=== PATIENT | female | born 1965 | race Caucasian/White ===

== ENCOUNTER → 2017-09-24 | Outpatient (CLI) | payer OTHER ==
--- NOTE | 2017-09-24 09:00 | DIAGNOSTIC IMAGING REPORT ---
RIGHT KNEE MRI HISTORY: RT KNEE PAIN COMPARISON STUDY: None. TECHNIQUE: Multiplanar multisequence MRI of the right knee was performed according to standard department protocol without the use of contrast. FINDINGS: Menisci: Complex tear at the posterior root of the medial meniscus with an oblique tear at the body of the medial meniscus. There is also a free edge tear involving the posterior horn of the medial meniscus. There is a free of tear at the body of the lateral meniscus. There is an oblique tear at the posterior horn of the lateral meniscus with a complex tear of the posterior root of the lateral meniscus. Ligaments: The ACL is not identified and likely torn. This could be chronic. The PCL is intact. There is thickening of the LCL which may be due to chronic injury. There is thickening and a small amount of abnormal signal within the proximal to mid MCL with surrounding edema. This suggests a partial tear. Extensor mechanism: The quadriceps tendon and patellar ligament are intact. Articular cartilage and bone: Patchy areas of marrow edema seen within the distal femur and proximal tibia. The distal femoral edema may be due to the long-standing degenerative change and/or bone contusions. There are subacute medial and lateral tibial plateau fractures. The lateral tibial plateau fracture demonstrates up to 5 mm of depression. The medial tibial plateau fracture demonstrates up to 2 mm of depression. Subchondral cystic change at the medial femoral condyle is likely chronic. This could also represent small areas of osteochondral lesions. These measure 6 and 5 mm in size. There is mild anterior subluxation of the distal tibia and relation to the femur. This may be due to the old ACL injury. Mild cartilage thinning within the medial patellar facet. Full-thickness cartilage loss seen within the medial compartment of the knee. Mild to moderate cartilage space narrowing within the lateral compartment of the knee. Joint effusion: Small. Soft tissues: Mild soft tissue edema surrounding the knee. IMPRESSION: 1. Medial and lateral tibial plateau fractures which are slightly depressed as described above. These appear to be subacute. 2. Multiple tears of the medial and lateral menisci as described above. 3. Full-thickness ACL tear. 5. Partial MCL tear. 6. Thickening of the LCL which is likely chronic. 7. Full-thickness cartilage loss within the medial compartment of the knee. 8. Small joint effusion. 9. Small cystic foci within the medial femoral condyle measure 6 and 5 mm. This could be due to the long-standing degenerative change or possibly small osteochondral lesions. Electronically signed by: Albert Joyner M.D. 09/24/2017 8:59 AM Dictated Date/Time: 09/24/2017 8:44 AM
== END | disposition home or self-care (01) ==
LOC: C.MRI 07:27
PROVIDERS: ATTEND Family Medicine
DX: M25.561 Pain in right knee (principal); G89.29 Other chronic pain; S82.141A Displaced bicondylar fracture of right tibia, initial encounter for closed fracture; S83.281A Other tear of lateral meniscus, current injury, right knee, initial encounter; S83.241A Other tear of medial meniscus, current injury, right knee, initial encounter; S83.511A Sprain of anterior cruciate ligament of right knee, initial encounter; S83.411A Sprain of medial collateral ligament of right knee, initial encounter; X58.XXXA Exposure to other specified factors, initial encounter; M17.11 Unilateral primary osteoarthritis, right knee; M25.461 Effusion, right knee; M85.48 Solitary bone cyst, other site